=== PATIENT | male | born 1980 | race Caucasian/White ===

== ENCOUNTER 2016-11-16 18:48 | Emergency (ER) | payer MEDICAID, OTHER, SELFPAY ==
[~2016-11-16] VITALS: Ht 188 cm; Wt 106.7 kg
[2016-11-16] MEDS ORDERED: DIAZEPAM 5 MG TABLET PO ONE (19:30)
[2016-11-16] MEDS ORDERED: HYDROmorphone 1 MG/ML, 1ML IM ONE (19:30)
[2016-11-16] MEDS ORDERED: DEXAMETHASONE 4 MG/ML, 1ML PO ONE (19:30)
[2016-11-16] MEDS ORDERED: HYDROmorphone 1 MG/ML, 1ML ONE (19:37)
[2016-11-16] MEDS ORDERED: DIAZEPAM 5 MG TABLET ONE (19:37)
[2016-11-16] MEDS ORDERED: DEXAMETHASONE 4 MG/ML, 5ML ONE (19:37)
[2016-11-16 20:34] VITALS: BP 122/77
== END 2016-11-16 21:40 | disposition home or self-care (01) ==
LOC: ED 21:29
DX: S62.315A Displaced fracture of base of fourth metacarpal bone, left hand, initial encounter for closed fracture (principal); S93.492A Sprain of other ligament of left ankle, initial encounter; S60.511A Abrasion of right hand, initial encounter; S50.812A Abrasion of left forearm, initial encounter; S90.812A Abrasion, left foot, initial encounter; S80.02XA Contusion of left knee, initial encounter; W22.8XXA Striking against or struck by other objects, initial encounter; Y93.55 Activity, bike riding; Y99.8 Other external cause status; Y92.89 Other specified places as the place of occurrence of the external cause
CPT/HCPCS: 29125; 72110; 73130; 73564; 73610; 96372; 99284; J1100; J1170

== ENCOUNTER 2016-11-24 19:00 | Emergency (ER) | payer MEDICAID ==
[~2016-11-24] VITALS: Ht 188 cm; Wt 104.9 kg
[2016-11-24 19:01] VITALS: BP 146/87
[2016-11-24] MEDS ORDERED: LIDOCAINE 1%, 20ML SQ ONE (19:30)
[2016-11-24] MEDS ORDERED: LIDOCAINE 1%, 20ML ONE (19:41)
== END 2016-11-24 20:23 | disposition home or self-care (01) ==
LOC: ED 20:17
DX: S51.812A Laceration without foreign body of left forearm, initial encounter (principal); W45.8XXA Other foreign body or object entering through skin, initial encounter; W22.8XXA Striking against or struck by other objects, initial encounter; Y93.89 Activity, other specified; Y99.8 Other external cause status; Y92.89 Other specified places as the place of occurrence of the external cause
CPT/HCPCS: 12004; 99283